=== PATIENT | female | born 1980 | race Caucasian/White ===

== ENCOUNTER 2018-09-05 13:43 | Outpatient (CLI) | payer OTHER ==
--- NOTE | 2018-09-05 14:26 | ULT ---
FUltrasound pelvis Doppler duplex: 09/05/2018 HISTORY: 38-year-old female with menorrhagia, enlarged uterus, and pelvic pain. TECHNIQUE: Transabdominal transducer used to evaluate intrapelvic contents with grayscale, color-flow, and spect ral analysis. According to the neonatal social worker, transvaginal ultrasound was not performed because of patient anxiety. FINDINGS: Uterus: 11.7 x 5.0 x 4.0 cm. Right ovary: 3.4 x 2.5 x 2 cm. Left ovary: 2.8 x 3 x 2.5 cm. Blood flow demonstrated to both ovaries by Doppler. Endometrial stripe: 0.8 cm (8mm) No moderate sized or large uterine fibroid identified. No ovarian cyst identified. No free fluid in the cul-de-sac. IMPRESSION: No major pathology identified
== END 2018-09-05 13:44 | disposition home or self-care (01) ==
LOC: BICULT 13:43
PROVIDERS: ATTEND Family Medicine
DX: N92.0 Excessive and frequent menstruation with regular cycle (principal); R10.30 Lower abdominal pain, unspecified
CPT/HCPCS: 76856; 93976

== ENCOUNTER 2019-03-13 09:12 | Outpatient (CLI) | payer OTHER ==
--- NOTE | 2019-03-13 10:55 | ULT ---
Gallbladder ultrasound: Multiple grayscale images of right upper quadrant obtained according to protocol. INDICATION: Pain FINDINGS: Liver: Normal Gallbladder: Gravel-like cholelithiasis/gallbladder sludge is present Gallbladder wall: Normal. Anand's Sign: Negative Common bile duct is normal. Ascites: None IMPRESSION: Gravel-like cholelithiasis/gallbladder sludge. No sonographic evidence to indicate acute cholecystiti s.
== END 2019-03-13 09:13 | disposition home or self-care (01) ==
LOC: ULT 09:12
PROVIDERS: ATTEND Family Medicine
DX: R10.11 Right upper quadrant pain (principal); R10.13 Epigastric pain
CPT/HCPCS: 76705

== ENCOUNTER 2019-08-24 09:09 | Outpatient (CLI) | payer OTHER ==
--- NOTE | 2019-08-24 10:47 | ULT ---
ULTRASOUND ABDOMEN: HISTORY: Chronic lateral hepatitis C FINDINGS: There are multiple tiny mobile nonshadowing gallstones without gallbladder wall thickening or pericho lecystic fluid. The liver, spleen, pancreas, kidneys and visualized portions of the aorta and IVC appear normal. The common duct measures 3 mm in diameter. No free fluid is seen. IMPRESSION: Tiny gallstones.
== END 2019-08-24 09:10 | disposition home or self-care (01) ==
LOC: BICULT 09:09
PROVIDERS: ATTEND Family Medicine
DX: B18.2 Chronic viral hepatitis C (principal); K80.20 Calculus of gallbladder without cholecystitis without obstruction
CPT/HCPCS: 93975